=== PATIENT | male | born 1960 | race Caucasian/White ===

== ENCOUNTER 2016-09-01 21:40 | Emergency (ER) | payer OTHER ==
[~2016-09-01] VITALS: Ht 172.7 cm; Wt 112.0 kg
[~2016-09-01 21:40] MED LIST: CEPHALEXIN500 MG PO; CHOLESTEROL MED; CLEOCIN300 MG PO; COLBENEMID1 TABLET PO; COUMADIN10 MG PO; DIGOXIN125 MCG PO; DILTIAZEM 24HR240 MG PO; DILTIAZEM ER300 M2 PO; GABAPENTIN400 MG PO; GLUCOPHAGE1000 MG PO; HEART PILL; HYDROCHLOROTHIA25 MG PO; LANOXIN,DIGIT0.25 MG PO; LANTUS; LANTUS (UNITS)1 UNIT IV; LANTUS 3 M100 UNITS1 SC; LISINOPRIL40 MG PO; LOPRESSOR50 MG PO; MOTRIN800 MG PO; NOVOLOG; NOVOLOG (UNITS1 UNIT IV; NOVOLOG 10100 UNITS/ SC; OXYCODONE HCL10 MG PO; PRAVASTATIN SOD40 MG PO; RANITIDINE HCL150 MG PO; SIMVASTATIN40 MG PO; TRAMADOL HCL50 MG PO; TRILIPIX135 MG PO; VENTOLIN HFA18 GM IH; VICODIN 5-3001 EACH PO; WARFARIN; WARFARIN SODIUM5 MG PO; ZESTRIL,PRINIVI10 MG PO; ZESTRIL,PRINIVI20 MG PO; ZYLOPRIM100 MG PO; [UNRECOGNIZED DRUG - REMARK]
[2016-09-01 22:13] LABS: ADD MIUA? YES; BILIRUBIN NEGATIVE; BLOOD MODERATE; GLUCOSE (STRIP) NEGATIVE; KETONES NEGATIVE; LEUKOCYTES NEGATIVE; NITRITE NEGATIVE; PROTEIN (STRIP) 100; SPECIFIC GRAVITY 1.016 (1.000-1.030); UROBILINOGEN 0.2 MG/DL (0.2-1.0)
[2016-09-01 22:38] LABS: COLOR RED ((YELLOW))
[2016-09-01 22:42] LABS: MCH 28.9 PG (29.0-34.0); MCHC 34.9 G/DL (30.0-36.0); MCV 82.8 FL (86-99); MEAN PLAT.VOLUME 8.9 uM^3 (9.0-12.4); PLATELET COUNT 246 K/uL (156-360); RBC DIS.WIDTH-CV 13.7 % (11.8-14.6); RBC DIS.WIDTH-SD 41.4 % (39-53); RED BLOOD COUNT 4.71 M/uL (4.00-5.50); WHITE BLOOD COUNT 13.1 K/uL (4.1-10.2)
[2016-09-01 22:49] LABS: BACTERIA 1+ /HPF; EPITHELIAL CELLS NONE SEEN /HPF; MUCUS NONE SEEN /LPF; RED BLOOD CELLS TNTC /HPF (0-5); UCUL ADDED? NO; WHITE BLOOD CELLS 0-5 /HPF (0-5)
[2016-09-01 22:50] LABS: CHLORIDE 105 mEq/L (99-109); POTASSIUM 3.6 mEq/L (3.7-5.4); SODIUM 140 mEq/L (136-147)
[2016-09-01 22:52] LABS: GLUCOSE 131 mg/dL (70-99)
[2016-09-01 22:53] LABS: ANION GAP 10 MEQ/L (2-14)
[2016-09-01 22:54] LABS: TOTAL BILIRUBIN 0.8 mg/dL (0.0-1.0)
[2016-09-01 22:56] LABS: ALKALINE PHOSPHATASE 70 IU/L (3-129); GFR ESTIMATE (CALCULATED) 48 mL/min/
[2016-09-01 22:57] LABS: UREA NITROGEN (BUN) 30 mg/dL (9-23)
[2016-09-02 00:23] LABS: PROTHROMBIN TIME 16.5 (9.2-11.2); PTT 30.1 (25-32)
[2016-09-02 00:43] LABS: INTER. NORMALIZED RATIO 1.6
[2016-09-02] MEDS ORDERED: KEFLEX500 MG PO (01:29)
[2016-09-02 01:46] VITALS: BP 171/73
== END 2016-09-02 01:47 | disposition home or self-care (01) ==
LOC: EME 21:40
DX: N39.0 Urinary tract infection, site not specified (principal); E11.9 Type 2 diabetes mellitus without complications; J44.9 Chronic obstructive pulmonary disease, unspecified; E78.5 Hyperlipidemia, unspecified; I10 Essential (primary) hypertension; I25.2 Old myocardial infarction; Z79.01 Long term (current) use of anticoagulants; Z79.84 Long term (current) use of oral hypoglycemic drugs; Z79.4 Long term (current) use of insulin; Z87.891 Personal history of nicotine dependence
CPT/HCPCS: 80053; 81003; 85027; 85610; 85730; 99281; 99285; J3010; J7030

== ENCOUNTER 2017-01-10 17:52 | Emergency (ER) | payer OTHER ==
[~2017-01-10] VITALS: Ht 175.3 cm; Wt 118.1 kg
[~2017-01-10 17:52] MED LIST changes: +KEFLEX500 MG PO
[2017-01-10 18:42] LABS: HEMATOCRIT 38.3 % (38.0-50.0); MCH 28.8 PG (29.0-34.0); MCHC 34.5 G/DL (30.0-36.0); MCV 83.4 FL (86-99); PLATELET COUNT 225 K/uL (156-360); RBC DIS.WIDTH-CV 13.4 % (11.8-14.6); RBC DIS.WIDTH-SD 40.4 % (39-53); RED BLOOD COUNT 4.59 M/uL (4.00-5.50); WHITE BLOOD COUNT 9.6 K/uL (4.1-10.2)
[2017-01-10 18:56] LABS: CHLORIDE 103 mEq/L (99-109); POTASSIUM 3.6 mEq/L (3.7-5.4); SODIUM 139 mEq/L (136-147)
[2017-01-10 18:57] LABS: GLUCOSE 174 mg/dL (70-99)
[2017-01-10 18:59] LABS: ANION GAP 12 MEQ/L (2-14)
[2017-01-10 19:01] LABS: GFR ESTIMATE (CALCULATED) > 59 mL/min/
[2017-01-10 19:02] LABS: UREA NITROGEN (BUN) 10 mg/dL (9-23)
[2017-01-10 21:35] VITALS: BP 135/63
== END 2017-01-10 21:54 | disposition home or self-care (01) ==
LOC: EME 17:52
DX: K62.5 Hemorrhage of anus and rectum (principal); Z93.3 Colostomy status; R06.02 Shortness of breath; Z79.01 Long term (current) use of anticoagulants; R94.31 Abnormal electrocardiogram [ECG] [EKG]; K76.0 Fatty (change of) liver, not elsewhere classified; N20.0 Calculus of kidney; K43.5 Parastomal hernia without obstruction or gangrene; I10 Essential (primary) hypertension; E78.5 Hyperlipidemia, unspecified; J44.9 Chronic obstructive pulmonary disease, unspecified; E11.9 Type 2 diabetes mellitus without complications; Z79.4 Long term (current) use of insulin; Z98.890 Other specified postprocedural states; Z87.891 Personal history of nicotine dependence
CPT/HCPCS: 74177; 80048; 85027; 86850; 86900; 86901; 93005; 99281; 99285

== ENCOUNTER 2017-11-13 18:39 | Observation (INO) | payer OTHER ==
[~2017-11-13] VITALS: Ht 175.3 cm; Wt 129.9 kg
[~2017-11-13 18:39] MED LIST changes: -OXYCODONE HCL10 MG PO; +ROXICODONE15 MG PO
[2017-11-13 19:54] LABS: HEMATOCRIT 36.8 % (38.0-50.0); HEMOGLOBIN 12.9 G/DL (12.5-16.6); MCH 29.7 PG (29.0-34.0); MCHC 35.1 G/DL (30.0-36.0); MCV 84.6 FL (86-99); PLATELET COUNT 220 K/uL (156-360); RBC DIS.WIDTH-CV 13.1 % (11.8-14.6); RBC DIS.WIDTH-SD 40.4 % (39-53); RED BLOOD COUNT 4.35 M/uL (4.00-5.50); WHITE BLOOD COUNT 13.4 K/uL (4.1-10.2)
[2017-11-13 20:04] LABS: CHLORIDE 100 mEq/L (99-109); SODIUM 136 mEq/L (136-147)
[2017-11-13 20:06] LABS: GLUCOSE 184 mg/dL (70-99)
[2017-11-13 20:07] LABS: APPEARANCE CLOUDY ((CLEAR)); BILIRUBIN NEGATIVE; BLOOD LARGE; COLOR YELLOW ((YELLOW)); GLUCOSE (STRIP) NEGATIVE; KETONES NEGATIVE; LEUKOCYTES NEGATIVE; NITRITE NEGATIVE; PROTEIN (STRIP) 30; SPECIFIC GRAVITY 1.015 (1.000-1.030); UROBILINOGEN 0.2 MG/DL (0.2-1.0)
[2017-11-13 20:10] LABS: CREATININE 1.5 mg/dL (0.6-1.3); GFR ESTIMATE (CALCULATED) 51 mL/min/ (58.99-99999)
[2017-11-13 20:11] LABS: UREA NITROGEN (BUN) 18 mg/dL (9-23)
[2017-11-13 20:12] LABS: CREATINE KINASE 218 IU/L (1-294)
[2017-11-13 20:14] LABS: TROP-I INTERPRETATION NEGATIVE; TROPONIN-I < 0.01 ng/mL (0.0-0.30)
[2017-11-13 20:36] LABS: RED BLOOD CELLS 30-40 /HPF (0-5)
[2017-11-13 20:39] LABS: MUCUS NONE SEEN /LPF
[2017-11-13 20:41] LABS: EPITHELIAL CELLS RARE /HPF; UCUL ADDED? YES
[2017-11-13 20:42] LABS: BACTERIA RARE /HPF; HYALINE CASTS 0-5 /LPF
[2017-11-13 23:12] LABS: DIGOXIN 0.4 ng/mL (0.8-2.0)
[2017-11-13] MEDS ORDERED: NEBULIZER (23:20)
[2017-11-13] MEDS ORDERED: CYMBALTA30 MG PO (23:21)
[2017-11-13] MEDS ORDERED: FUROSEMIDE40 MG PO (23:21)
[2017-11-13] MEDS ORDERED: JANUVIA100 MG PO (23:21)
[2017-11-13] MEDS ORDERED: NEURONTIN800 MG PO (23:22)
[2017-11-13] MEDS ORDERED: HUMULIN R500 UNIT/1 SC (23:22)
[2017-11-13] MEDS ORDERED: OXYMORPHONE HCL15 MG PO (23:22)
[2017-11-13] MEDS ORDERED: HUMIRA40 MG/0.1 SC (23:23)
[2017-11-13] MEDS ORDERED: XARELTO20 MG PO (23:23)
[2017-11-14 01:48] LABS: D-DIMER ELISA < 150.00 ng/mLDDU (<230)
[2017-11-14 02:12] VITALS: BP 136/76
[2017-11-14 05:12] VITALS: BP 120/56
[2017-11-14 05:55] LABS: TROP-I INTERPRETATION NEGATIVE; TROPONIN-I < 0.01 ng/mL (0.0-0.30)
[2017-11-14 07:29] VITALS: BP 126/56
[2017-11-14 11:01] LABS: AMPHETAMINE NEGATIVE (500 ng/mL); BARBITURATES NEGATIVE (200 ng/mL); BENZODIAZEPINES NEGATIVE (150 ng/mL); BUPRENORPHINE NEGATIVE (10 ng/mL); COCAINE NEGATIVE (150 ng/mL); METHADONE NEGATIVE (200 ng/mL); METHAMPHETAMINE NEGATIVE (500 ng/mL); OPIATES (MORPHINE) NEGATIVE (100 ng/mL); OXYCODONE NEGATIVE (100 ng/mL); PHENCYCLIDINE NEGATIVE (25 ng/mL); PROPOXYPHENE NEGATIVE (300 ng/mL); THC CANNABINOIDS NEGATIVE (50 ng/mL); TRICYCLIC ANTIDEPRESSANTS NEGATIVE (300 ng/mL)
[2017-11-14 11:18] VITALS: BP 117/59
[2017-11-14 12:04] LABS: TROP-I INTERPRETATION NEGATIVE; TROPONIN-I < 0.01 ng/mL (0.0-0.30)
[2017-11-14 15:49] VITALS: BP 180/77
== END 2017-11-14 19:05 | disposition home or self-care (01) ==
LOC: EME 18:39 → EDOF 11-14 00:40 → 4SOUTH 11-14 01:39
PROVIDERS: Hospitalist; Physician Assistant
DX: I48.1 Persistent atrial fibrillation (principal); I10 Essential (primary) hypertension; E66.01 Morbid (severe) obesity due to excess calories; I44.7 Left bundle-branch block, unspecified; E78.5 Hyperlipidemia, unspecified; I25.10 Atherosclerotic heart disease of native coronary artery without angina pectoris; I25.2 Old myocardial infarction; M10.9 Gout, unspecified; Z87.891 Personal history of nicotine dependence; Z93.3 Colostomy status; E11.9 Type 2 diabetes mellitus without complications; Z79.4 Long term (current) use of insulin; Z68.41 Body mass index [BMI] 40.0-44.9, adult; Z88.2 Allergy status to sulfonamides
CPT/HCPCS: 71046; 74176; 80048; 80162; 81003; 82550; 82948; 84484; 85027; 85379; 87086; 93005; 94799; 99281; 99285; G0378; J1815; J7030